=== PATIENT | female | born 1995 ===

== ENCOUNTER 2018-07-11 02:48 | Emergency (ER) | payer OTHER ==
[2018-07-11] MEDS ORDERED: Oxycodone/Acetaminophen 5/325 mg Tab PO STA (03:19)
[2018-07-11] MEDS ORDERED: Tdap Vaccine 0.5 ml Vial (10-64 yrs) IM ONE ×2 (03:19→05:13)
[2018-07-11 03:20] VITALS: BMI 22.1
[2018-07-11 03:21] VITALS: RESP 18
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
[2018-07-11] MEDS ORDERED: Oxycodone/Acetaminophen 5/325 mg Tab ONE (05:12)
[2018-07-11 07:04] VITALS: BP 114/61; PULSE 91; TEMP 98.4; O2SAT 99
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
== END 2018-07-11 06:10 | disposition home or self-care (01) ==
LOC: H.ER 02:48
DX: S02.2XXA Fracture of nasal bones, initial encounter for closed fracture (principal); Y04.0XXA Assault by unarmed brawl or fight, initial encounter; Y92.89 Other specified places as the place of occurrence of the external cause